=== PATIENT | female | born 1950 | race Caucasian/White ===

== ENCOUNTER 2017-02-22 13:52 | Emergency (ER) | payer MEDICARE, OTHER ==
--- NOTE | 2017-02-22 15:08 | EDM.PDOC ---
ED HPI GENERAL MEDICAL PROBLEM - General Chief Complaint: Respiratory Problem Stated Complaint: ? PNEUMONIA Time Seen by Provider: 02/22/17 15:02 Source of Information: Reports: Patient History Limitations: Reports: No Limitations - History of Present Illness INITIAL COMMENTS - FREE TEXT/NARRATIVE: 66 yo female presents with 10 days of coughing. States the last 3-4 days she has had more of a productive cough. C/o difficulty in breathing with laying flat. States that she is also having a sore throat. No other complaints currently. Onset Date: 02/11/17 Duration: Getting Worse Location: Reports: Chest Quality: Reports: Ache Improves with: Reports: None Worsens with: Reports: Movement Associated Symptoms: Reports: cough w sputum - Related Data Allergies Allergy/AdvReac Type Severity Reaction Status Date / Time erythromycin base Allergy Hives Verified 11/11/15 15:24 [Erythromycin Base] erythromycin lactobionate Allergy Hives Verified 11/11/15 15:24 [From Erythrocin] novobiocin [Novobiocin] Allergy Hives Verified 11/11/15 15:24 Penicillins Allergy Hives Verified 11/11/15 15:24 procaine HCl [From Novocain] Allergy Swelling Verified 11/11/15 15:24 Home Meds: Home Meds Anastrozole [Arimidex] 1 mg PO DAILY 10/16/13 [History] Aspirin [Halfprin] 81 mg PO DAILY 10/16/13 [History] Docusate Sodium [Colace] 300 mg PO DAILY 10/16/13 [History] Fluvastatin [Lescol XL] 80 mg PO DAILY 10/16/13 [History] Levothyroxine [Synthroid] 50 mcg PO ACBRK 10/16/13 [History] Verapamil HCl [Verapamil ER] 240 mg PO DAILY 10/16/13 [History] Cholecalciferol (Vitamin D3) [Vitamin D3] 1,000 unit PO DAILY 01/14/17 [History] Losartan [Cozaar] 50 mg PO DAILY 01/14/17 [History] Vit C/Ross & Celery Ex/Grp E [Tart Ross] 1 cap PO DAILY 01/14/17 [History] Past Medical History HEENT History: Reports: Hard of Hearing Other HEENT History: reading glasses Cardiovascular History: Reports: High Cholesterol, Hypertension Respiratory History: Reports: None Gastrointestinal History: Reports: None Genitourinary History: Reports: None 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 Musculoskeletal History: Reports: Fracture, Gout Neurological History: Reports: None Psychiatric History: Reports: None Endocrine/Metabolic History: Reports: Hypothyroidism Hematologic History: Reports: None Immunologic History: Reports: None Oncologic (Cancer) History: Reports: Breast Dermatologic History: Reports: None - Infectious Disease History Infectious Disease History: Reports: Chicken Pox, Measles, Mumps, Shingles - Past Surgical History Head Surgeries/Procedures: Reports: None Female Surgical History: Reports: Breast Biopsy, Mastectomy Oncologic Surgical History: Reports: Biopsy of Breast, Mastectomy Social & Family History - Tobacco Use Smoking Status *Q: Never Smoker Second Hand Smoke Exposure: No - Caffeine Use Caffeine Use: Reports: Coffee, Soda, Tea - Recreational Drug Use Recreational Drug Use: No ED ROS GENERAL - Review of Systems Review Of Systems: ROS reveals no pertinent complaints other than HPI. ED EXAM, GENERAL - Physical Exam Exam: See Below Exam Limited By: No Limitations General Appearance: Alert, WD/WN, No Apparent Distress Eye Exam: Bilateral Eye: PERRL Ears: Normal External Exam, Normal Canal (Moderate effusion left ear), Hearing Grossly Normal Ear Exam: Bilateral Ear: TM Dull Head: Atraumatic, Normocephalic, Sinus Tenderness Neck: Normal Inspection, Supple, Non-Tender, Full Range of Motion Respiratory/Chest: No Respiratory Distress, No Accessory Muscle Use, Chest Non- Tender, Decreased Breath Sounds (bilateral bases), Rhonchi, Wheezing Cardiovascular: Normal Peripheral Pulses, Regular Rate, Rhythm, No Edema, No Gallop, No JVD, No Murmur, No Rub Neurological: Alert, Oriented, CN II-XII Intact, Normal Cognition, Normal Gait, No Motor/Sensory Deficits Skin Exam: Warm, Dry, Intact, Normal Color, No Rash Course - Vital Signs Last Recorded V/S: Last Vital Signs Temp 98.0 F 02/22/17 15:32 Pulse 75 02/22/17 15:32 Resp 18 02/22/17 15:32 BP 149/61 H 02/22/17 15:32 Pulse Ox 91 L 02/22/17 15:32 - Orders/Labs/Meds Orders: Active Orders 24 hr Category Date Time Status Chest 2V [CR] Stat Exams 02/22/17 14:57 Taken CULTURE STREP A CONFIRMATION [RM] Stat Lab 02/22/17 15:24 Results STREP SCRN A RAPID W CULT CONF [RM] Stat Lab 02/22/17 15:24 Results Meds: Medications Discontinued Medications Generic Name Dose Route Start Last Admin Trade Name Court PRN Reason Stop Dose Admin Levofloxacin 750 mg 02/22/17 15:47 Levaquin PO 02/22/17 15:48 ONETIME ONE Departure - Departure Time of Disposition: 15:53 Disposition: Refer to Observation Condition: Good Clinical Impression: Pneumonia Qualifiers: Pneumonia type: due to unspecified organism Laterality: left Lung location: lower lobe of lung Qualified Code(s): J18.1 - Lobar pneumonia, unspecified organism Sinusitis Qualifiers: Sinusitis location: maxillary Chronicity: acute Recurrence: non-recurrent Qualified Code(s): J01.00 - Acute maxillary sinusitis, unspecified - Discharge Information Instructions: Community-Acquired Pneumonia, Adult, [id number], Sinusitis, Adult, [id number] Forms: ED Department Discharge Additional Instructions: Take the Pearls up ot three times a day as needed for the coughing. You will be on the antibiotic for 10 days. Your first dose is here in ER, next dose due tomorrow. Drink plenty of fluids to stay hydrated. Follow up with your PCP in 1 week. Return for any worsening symptoms. - My Orders Last 24 Hours: My Active Orders 02/22/17 14:57 Chest 2V [CR] Stat 02/22/17 15:24 CULTURE STREP A CONFIRMATION [RM] Stat STREP SCRN A RAPID W CULT CONF [RM] Stat - Assessment/Plan Last 24 Hours: My Active Orders 02/22/17 14:57 Chest 2V [CR] Stat 02/22/17 15:24 CULTURE STREP A CONFIRMATION [RM] Stat STREP SCRN A RAPID W CULT CONF [RM] Stat
[2017-02-22 15:32] VITALS: BP 149/61
[2017-02-22] MEDS ORDERED: Levofloxacin 500 MG Tab PO ONE (15:47)
== END 2017-02-22 16:01 | disposition home or self-care (01) ==
LOC: DL.ED 13:52
DX: J18.9 Pneumonia, unspecified organism (principal); J01.00 Acute maxillary sinusitis, unspecified; E78.00 Pure hypercholesterolemia, unspecified; I10 Essential (primary) hypertension; E03.9 Hypothyroidism, unspecified; Z88.1 Allergy status to other antibiotic agents; Z88.0 Allergy status to penicillin; Z88.8 Allergy status to other drugs, medicaments and biological substances; Z79.899 Other long term (current) drug therapy; Z79.82 Long term (current) use of aspirin
CPT/HCPCS: 71020; 87081; 87430; 99283; A9270

== ENCOUNTER 2019-01-02 09:20 | Emergency (ER) | payer MEDICARE, OTHER ==
--- NOTE | 2019-01-02 10:17 | EDM.PDOC ---
ED HPI GENERAL MEDICAL PROBLEM - General Chief Complaint: Respiratory Problem Stated Complaint: NOT FEELING GOOD [id number] Time Seen by Provider: 01/02/19 09:50 - History of Present Illness INITIAL COMMENTS - FREE TEXT/NARRATIVE: Cold sx x 3 days. No hx of asthma. Has chest congestion and cough. Sore throat yesterday but not today. No fevers but + for fatigue. Treatments RN SURGICAL: Reports: Other Medication(s) - Related Data Allergies Allergy/AdvReac Type Severity Reaction Status Date / Time erythromycin base Allergy Hives Verified 01/02/19 09:59 [Erythromycin Base] erythromycin lactobionate Allergy Hives Verified 01/02/19 09:59 [From Erythrocin] novobiocin [Novobiocin] Allergy Hives Verified 01/02/19 09:59 Penicillins Allergy Hives Verified 01/02/19 09:59 procaine HCl [From Novocain] Allergy Swelling Verified 01/02/19 09:59 Home Meds: Home Meds Anastrozole [Arimidex] 1 mg PO DAILY 10/16/13 [History] Aspirin [Halfprin] 81 mg PO DAILY 10/16/13 [History] Docusate Sodium [Colace] 300 mg PO DAILY 10/16/13 [History] Fluvastatin [Lescol XL] 80 mg PO DAILY 10/16/13 [History] Levothyroxine [Synthroid] 50 mcg PO ACBRK 10/16/13 [History] Verapamil HCl [Verapamil ER] 240 mg PO DAILY 10/16/13 [History] Cholecalciferol (Vitamin D3) [Vitamin D3] 1,000 unit PO DAILY 01/14/17 [History] Losartan [Cozaar] 50 mg PO DAILY 01/14/17 [History] Vit C/Ross & Celery Ex/Grp E [Tart Ross] 1 cap PO DAILY 01/14/17 [History] Past Medical History HEENT History: Reports: Hard of Hearing Other HEENT History: reading glasses Cardiovascular History: Reports: High Cholesterol, Hypertension Respiratory History: Reports: None Gastrointestinal History: Reports: None Genitourinary History: Reports: None 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 Musculoskeletal History: Reports: Fracture, Gout Neurological History: Reports: None Psychiatric History: Reports: None Endocrine/Metabolic History: Reports: Hypothyroidism Hematologic History: Reports: None Immunologic History: Reports: None Oncologic (Cancer) History: Reports: Breast Dermatologic History: Reports: None - Infectious Disease History Infectious Disease History: Reports: Chicken Pox, Measles, Mumps, Shingles - Past Surgical History Head Surgeries/Procedures: Reports: None Female Surgical History: Reports: Breast Biopsy, Mastectomy Oncologic Surgical History: Reports: Biopsy of Breast, Mastectomy Social & Family History - Tobacco Use Smoking Status *Q: Never Smoker - Caffeine Use Caffeine Use: Reports: Coffee - Recreational Drug Use Recreational Drug Use: No ED ROS GENERAL - Review of Systems Review Of Systems: See Below Constitutional: Reports: Fatigue HEENT: Reports: Other (sore throat 2 days ago that has now resolved. Mild sinus congestion. ) Respiratory: Reports: Other (mild SOB. Cough dry. no hx of asthma. ) Cardiovascular: Reports: No Symptoms GI/Abdominal: Reports: No Symptoms Musculoskeletal: Reports: No Symptoms Skin: Reports: No Symptoms Immunologic: Reports: No Symptoms ED EXAM, GENERAL - Physical Exam Exam: See Below General Appearance: Alert, WD/WN, No Apparent Distress Ears: Normal External Exam, Normal Canal, Hearing Grossly Normal, Normal TMs Nose: Normal Inspection Throat/Mouth: Normal Inspection Head: Atraumatic, Normocephalic Neck: Normal Inspection, Supple, Non-Tender, Full Range of Motion Respiratory/Chest: No Respiratory Distress, Lungs Clear, Normal Breath Sounds Cardiovascular: Normal Peripheral Pulses, Regular Rate, Rhythm Extremities: Normal Inspection, No Pedal Edema, Normal Capillary Refill Skin Exam: Warm, Dry, Intact, Normal Color, No Rash Course - Vital Signs Last Recorded V/S: Last Vital Signs Temp 36.6 C 01/02/19 09:33 Pulse 86 01/02/19 09:33 Resp 16 01/02/19 09:33 BP 158/76 H 01/02/19 09:33 Pulse Ox 97 01/02/19 09:33 Departure - Departure Time of Disposition: 10:12 Disposition: Home, Self-Care 01 Condition: Good Clinical Impression: Viral upper respiratory illness - Discharge Information *PRESCRIPTION DRUG MONITORING PROGRAM REVIEWED*: Not Applicable Instructions: Shortness of Breath, Adult, [id number], Upper Respiratory Infection, Adult, [id number] Referrals: Gretchen Diop MD [Primary Care Provider] - Additional Instructions: Viral upper respiratory infection - no antibiotics. Rest, fluids, and use albuterol inhaler 2 puffs q4-6 hours as needed. Return if worsening symptoms or difficulty breathing
== END 2019-01-02 10:21 | disposition home or self-care (01) ==
LOC: DL.ED 09:20
CPT/HCPCS: 99282; 99283

== ENCOUNTER 2024-11-20 13:52 | Emergency (ER) | payer MEDICARE, OTHER ==
[2024-11-20 14:21] VITALS: BP 159/59; PULSE 64
[2024-11-20] MEDS: Take Home: Doxycycline 100 MG Cap, 4 Cap Pack PO ONE (14:27)
== END 2024-11-20 14:31 | disposition home or self-care (01) ==
LOC: DL.ED 13:52
DX: J18.9 Pneumonia, unspecified organism (principal); I10 Essential (primary) hypertension; E78.00 Pure hypercholesterolemia, unspecified; E03.9 Hypothyroidism, unspecified; Z88.0 Allergy status to penicillin; Z88.1 Allergy status to other antibiotic agents; Z88.8 Allergy status to other drugs, medicaments and biological substances; Z79.82 Long term (current) use of aspirin; Z79.890 Hormone replacement therapy; Z79.899 Other long term (current) drug therapy
CPT/HCPCS: 99283; A9270; 99284